=== PATIENT | male | born 1960 | race Caucasian/White ===

== ENCOUNTER 2021-02-11 18:00 | Emergency (ER) | payer BC ==
--- NOTE | 2021-02-11 19:36 | CR ---
Left ankle: 4 views of the left ankle were obtained. Comparison: No prior ankle study. Ankle mortise is symmetric. Mild soft tissue swelling is noted. No acute fracture, dislocation or other bony abnormality is appreciated. Impression: 1. Soft tissue swelling. 2. No acute osseous abnormality is appreciated. Diagnostic code #2
--- NOTE | 2021-02-11 19:53 | CR ---
Left tibia and fibula: AP and lateral views of the left tibia and fibula were obtained. Comparison: Ankle study performed earlier on the same day (6:59 PM) Soft tissue swelling appears to be present. Within the anterior talus there is a minimal irregularity being seen. Uncertain if this is due to acute or old cortical injury. This is not as well-seen on the recent ankle study. No additional fracture or other abnormality is appreciated. Impression: 1. Soft tissue swelling. 2. Minimal irregularity within the anterior talus. Please correlate if patient is symptomatic to this area to represent minimal cortical injury or whether this is old. Diagnostic code #3 MTDD
--- NOTE | 2021-02-11 19:55 | EDM.PDOC ---
ED HPI GENERAL MEDICAL PROBLEM - General Chief Complaint: Lower Extremity Injury/Pain Stated Complaint: SWOLLEN LT LEG Time Seen by Provider: 02/11/21 18:23 Source of Information: Reports: Patient, RN Notes Reviewed History Limitations: Reports: No Limitations - History of Present Illness INITIAL COMMENTS - FREE TEXT/NARRATIVE: Patient is a 6-year-old male presenting to the emergency department with complaints of pain and swelling to his left lower extremity. He states that on of last week, he stumbled and injured his ankle. Since that time the pain has been getting progressively worse. He took a road trip to [place] over this weekend so he was seated for an extended period of time with his legs in the dependent position. He has swelling extending up his left calf. He was seen at the walk-in clinic prior to coming here and there was concern that he could have a blood clot, therefore he was sent here for evaluation. Denies any history of blood clots. He has had no chest pain or shortness of breath. 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 Left Ankle Pain Score (Numeric/FACES): 10 - Related Data Allergies Allergy/AdvReac Type Severity Reaction Status Date / Time No Known Allergies Allergy Verified 02/11/21 18:29 Home Meds: Home Meds Rivaroxaban [Xarelto] 1 each PO ASDIRECTED #1 tab.ds.pk 02/11/21 [Rx] Past Medical History - Past Health History Medical/Surgical History: Denies Medical/Surgical History Social & Family History - Family History Family Medical History: No Pertinent Family History - Tobacco Use Tobacco Use Status *Q: Never Tobacco User - Caffeine Use Caffeine Use: Reports: None - Recreational Drug Use Recreational Drug Use: No Review of Systems - Review of Systems Review Of Systems: See Below Constitutional: Reports: No Symptoms Eyes: Reports: No Symptoms Ears: Reports: No Symptoms Nose: Reports: No Symptoms, Previous Injury Respiratory: Reports: No Symptoms. Denies: Shortness of Breath, Pleuritic Chest Pain Cardiovascular: Reports: Edema. Denies: Chest Pain GI/Abdominal: Reports: No Symptoms Genitourinary: Reports: No Symptoms Musculoskeletal: Reports: Leg Pain (left lower extremity/ankle) Skin: Reports: No Symptoms Neurological: Reports: No Symptoms Psychiatric: Reports: No Symptoms ED EXAM, GENERAL - Physical Exam Exam: See Below Exam Limited By: No Limitations General Appearance: Alert, WD/WN, No Apparent Distress Respiratory/Chest: No Respiratory Distress, Lungs Clear, Normal Breath Sounds, No Accessory Muscle Use, Chest Non-Tender Cardiovascular: Normal Peripheral Pulses, Regular Rate, Rhythm, No Gallop, No JVD, No Murmur, No Rub Extremities: Other (edema to left lower extremity below the level of the knee. No redness or warmth present. Mild tenderness to palpation of the medial malleolus. No tenderness to the foot.) Neurological: Alert, Oriented, CN II-XII Intact, Normal Cognition, Normal Gait, Normal Reflexes, No Motor/Sensory Deficits Psychiatric: Normal Affect, Normal Mood Skin Exam: Warm, Dry, Intact, Normal Color, No Rash Course - Vital Signs Last Recorded V/S: Last Vital Signs Temp 99.3 F 02/11/21 18:24 Pulse 78 02/11/21 18:24 Resp 18 02/11/21 18:24 BP 131/80 02/11/21 18:24 Pulse Ox 96 02/11/21 18:24 - Orders/Labs/Meds Labs: Laboratory Tests 02/11/21 Range/Units 19:22 D-Dimer, Quantitative 3.06 H (0.19-0.50) mg/L Meds: Medications Discontinued Medications Generic Name Dose Route Start Last Admin Trade Name Freq PRN Reason Stop Dose Admin Rivaroxaban 15 mg 02/11/21 21:19 02/11/21 21:31 Rivaroxaban 15 Mg Tab PO 02/11/21 21:20 15 mg ONETIME ONE Administration - Re-Assessments/Exams Free Text/Narrative Re-Assessment/Exam: Patient is a 6-year-old male presenting to the emergency department with complaints of pain and swelling to his left ankle and calf. States on of last week he misstepped and injured the ankle. Pain has been getting progressively worse as has been the swelling. I have ordered x-rays of the ankle and tib-fib. Also completed D-dimer. If this is elevated I will order venous Doppler ultrasound of the lower extremity. 02/11/211954 D-dimer was found to be elevated at 3.06. I have ordered a venous Doppler ultrasound of the left lower extremity. 02/11/21 21:20 Venous Doppler ultrasound of the left lower extremity shows a deep venous thrombosis of the left popliteal vein, posterior tibial, and peroneal veins. X- ray of the lower extremity shows a "minimal irregularity within the anterior Bernardo talus. Please correlate if patient is symptomatic to this area to represent minimal cortical injury or whether this is old." He has no tenderness to palpation of this area. Patient will be started on Xarelto for treatment of DVT. He will receive his first dose of medication this evening and I will send a prescription for the first month of the medication. Recommend that he schedule a follow-up appoint with his primary care provider at her next available visit for ongoing management. Discussed risks associated with blood thinners and concerning symptoms that should be evaluated including black stools or any head injuries. He verbalized understanding of this. Discharge instructions as documented. Departure - Departure Time of Disposition: 21:22 Disposition: Home, Self-Care 01 Condition: Good Clinical Impression: DVT (deep venous thrombosis) Qualifiers: DVT location: lower extremity Affected thrombotic vein of extremity: other lower extremity vein Chronicity: acute Laterality: left Qualified Code(s): I82.492 - Acute embolism and thrombosis of other specified deep vein of left lower extremity - Discharge Information *PRESCRIPTION DRUG MONITORING PROGRAM REVIEWED*: No *COPY OF PRESCRIPTION DRUG MONITORING REPORT IN PATIENT TORI: No Prescriptions: Rivaroxaban [Xarelto] 1 each PO ASDIRECTED #1 tab.ds.pk Instructions: Deep Vein Thrombosis Referrals: Tonya Honeycutt MD [Primary Care Provider] - Forms: ED Department Discharge Additional Instructions: You were seen in the emergency department this evening for evaluation with regards to pain and swelling to your left lower extremity. X-rays were completed and show no obvious fracture. Ultrasound was completed the extremity and did unfortunately show a deep venous thrombosis (blood clot). You have been started on Xarelto which is a blood thinner. Take this medication as prescribed. First dose was given in ER. Recommend that you call to schedule a follow-up with your primary care provider at her next available visit for ongoing management of the your blood clot as well as refills of this medication. Please be aware that when you are on blood thinners there is increased risk of bleeding. If you should note any black or tarry stools or injure your head in any way, you should be evaluated in the emergency department. If you should experience any other new or worsening symptoms of concern, please not hesitate to return for reevaluation. Sepsis Event Note (ED) - Evaluation Sepsis Screening Result: No Definite Risk - Focused Exam Vital Signs: Vital Signs Temp Pulse Resp BP Pulse Ox 02/11/21 18:24 99.3 F 78 18 131/80 96
--- NOTE | 2021-02-11 21:09 | US ---
Left lower extremity deep venous ultrasound: Duplex and color Doppler evaluation was obtained of the left common femoral, proximal greater saphenous, superficial femoral, popliteal, posterior tibial and peroneal veins. Right common femoral vein was also evaluated. Comparison: No previous ultrasound available. Findings: There is lack of compressibility, phasic flow and augmentation within the popliteal, posterior tibial and peroneal veins compatible with deep venous thrombosis. There is normal compression of the veins within the superficial femoral and common femoral veins. Right common femoral vein is patent. Impression: 1. Deep venous thrombosis within the left popliteal vein, posterior tibial and peroneal veins. Diagnostic code #5
[2021-02-11] MEDS ORDERED: Rivaroxaban 15 MG Tab PO ONE (21:19)
== END 2021-02-11 21:37 | disposition home or self-care (01) ==
LOC: JD.ED 18:00
DX: I82.492 Acute embolism and thrombosis of other specified deep vein of left lower extremity (principal)
CPT/HCPCS: 36415; 73590; 73610; 85379; 93971; 99284; A9270; 99283

== ENCOUNTER 2021-04-05 00:39 | Emergency (ER) | payer BC ==
--- NOTE | 2021-04-05 00:55 | EDM.PDOC ---
ED HPI GENERAL MEDICAL PROBLEM - General Chief Complaint: Cardiovascular Problem Stated Complaint: LEFT LEG PAIN/POSS BLOOD CLOT Time Seen by Provider: 04/05/21 00:54 Source of Information: Reports: Patient History Limitations: Reports: No Limitations - History of Present Illness INITIAL COMMENTS - FREE TEXT/NARRATIVE: Patient is a 60-year-old male who is complaining having pain with redness and warmth to his left lower leg which started approximately 9:00 tonight. Patient noted the pain and symptoms when he was going to bed tonight. He is currently being treated for a DVT with Xarelto of his left lower leg which he felt was due to twisting his ankle 1 month ago. He denies any numbness weakness paresthesias. He states the left leg looks much better than he did 1 month ago. He is noticing leg is red and warm to touch and tender which is new from tonight. He denies any fever or shaking chills. He has no chest pain cough or shortness of breath. Patient has had no abdominal pain numbness or weakness. Onset: Today Duration: Getting Worse Location: Reports: Lower Extremity, Left Quality: Reports: Ache Severity: Moderate Improves with: Reports: None Worsens with: Reports: Movement Context: Reports: Other (History of recent DVT on Xarelto.) Associated Symptoms: Reports: No Other Symptoms Left Leg Pain Score (Numeric/FACES): 9 - Related Data Allergies Allergy/AdvReac Type Severity Reaction Status Date / Time No Known Allergies Allergy Verified 04/05/21 00:51 Home Meds: Home Meds Rivaroxaban [Xarelto] 1 each PO ASDIRECTED #1 tab.ds.pk 02/11/21 [Rx] Amoxicillin/Potassium Clav [Augmentin 875-125 Tablet] 1 each PO BID #20 tablet 04/05/21 [Rx] Hydrocodone/Acetaminophen [Hydrocodone-Acetamin 5-325 mg] 1 each PO Q4HR PRN #14 tab 04/05/21 [Rx] Past Medical History - Past Health History Medical/Surgical History: Denies Medical/Surgical History Social & Family History - Family History Family Medical History: No Pertinent Family History - Tobacco Use Tobacco Use Status *Q: Never Tobacco User - Caffeine Use Caffeine Use: Reports: Tea - Recreational Drug Use Recreational Drug Use: Yes Drug Use in Last 12 Months: No Recreational Drug Type: Reports: Marijuana/Hashish Other Recreational Drug Type: quit using marijuana in 2002 ED ROS GENERAL - Review of Systems Review Of Systems: Comprehensive ROS is negative, except as noted in HPI. ED EXAM, GENERAL - Physical Exam Exam: See Below Exam Limited By: No Limitations General Appearance: Alert, No Apparent Distress Head: Atraumatic, Normocephalic Neck: Normal Inspection, Supple, Full Range of Motion Respiratory/Chest: No Respiratory Distress Cardiovascular: Normal Peripheral Pulses, Regular Rate, Rhythm GI/Abdominal: Soft, Non-Tender Extremities: Redness, Other (Positive for warmth and tenderness medial to the knee.) Psychiatric: Normal Affect, Normal Mood Skin Exam: Warm, Dry Lymphatic: No Adenopathy Course - Vital Signs Text/Narrative:: Patient's lab work is unremarkable. Reexamination of his leg after the Toradol shows markedly decreased erythema warmth and tenderness. Patient feels that he has not had much improvement but clinically looks dramatically improved. I feel it is less likely an infection at this time but will continue him on Augmentin and give him some hydrocodone with Tylenol as needed. Augmentin as listed effect on the Xarelto then most other antibiotics. Patient is to return to ER if symptoms are worse and follow-up with his PCP today or certainly by Thursday. I am giving patient today off work. Last Recorded V/S: Last Vital Signs Temp 97 F 04/05/21 00:47 Pulse 78 04/05/21 00:47 Resp 18 04/05/21 00:47 BP 156/94 H 04/05/21 00:47 Pulse Ox 95 04/05/21 00:47 - Orders/Labs/Meds Orders: Active Orders 24 hr Category Date Time Status CULTURE BLOOD [BC] Stat Lab 04/05/21 01:40 Received CULTURE BLOOD [BC] Stat Lab 04/05/21 01:45 Received Blood Culture x2 Reflex Set [OM.PC] Stat Oth 04/05/21 01:24 Ordered Labs: Laboratory Tests 04/05/21 04/05/21 04/05/21 Range/Units 01:16 01:16 01:16 WBC 10.07 H (4.23-9.07) K/mm3 RBC 4.72 (4.63-6.08) M/mm3 Hgb 14.8 (13.7-17.5) gm/dl Hct 43.8 (40.1-51.0) % MCV 92.8 H (79.0-92.2) fl MCH 31.4 (25.7-32.2) pg MCHC 33.8 (32.2-35.5) g/dl RDW Std Deviation 43.8 (35.1-43.9) fL Plt Count 160 L (163-337) K/mm3 MPV 10.4 (9.4-12.3) fl Neutrophils % (Manual) 52 (40-60) % Band Neutrophils % 2 (0-10) % Lymphocytes % (Manual) 28 (20-40) % Atypical Lymphs % 0 % Monocytes % (Manual) 12 H (2-10) % Eosinophils % (Manual) 4 (0.8-7.0) % Basophils % (Manual) 2 H (0.2-1.2) Platelet Estimate Decreased Plt Morphology Comment Normal RBC Morph Comment Normal ESR 4 (0-15) mm/hr Sodium 144 (136-145) mEq/L Potassium 4.3 (3.5-5.1) mEq/L Chloride 108 H (98-107) mEq/L Carbon Dioxide 26 (21-32) mEq/L Anion Gap 14.3 (5-15) BUN 16 (7-18) mg/dL Creatinine 1.0 (0.7-1.3) mg/dL Est Cr Clr Drug Dosing 76.00 mL/min Estimated GFR (MDRD) > 60 (>60) mL/min BUN/Creatinine Ratio 16.0 (14-18) Glucose 112 H (70-99) mg/dL Lactic Acid (0.4-2.0) mmol/L Calcium 8.5 (8.5-10.1) mg/dL Total Bilirubin 0.5 (0.2-1.0) mg/dL AST 21 (15-37) U/L ALT 36 (16-63) U/L Alkaline Phosphatase 60 (46-116) U/L Total Protein 6.6 (6.4-8.2) g/dl Albumin 3.3 L (3.4-5.0) g/dl Globulin 3.3 gm/dL Albumin/Globulin Ratio 1.0 (1-2) // Range/Units 01:16 WBC (4.23-9.07) K/mm3 RBC (4.63-6.08) M/mm3 Hgb (13.7-17.5) gm/dl Hct (40.1-51.0) % MCV (79.0-92.2) fl MCH (25.7-32.2) pg MCHC (32.2-35.5) g/dl RDW Std Deviation (35.1-43.9) fL Plt Count (163-337) K/mm3 MPV (9.4-12.3) fl Neutrophils % (Manual) (40-60) % Band Neutrophils % (0-10) % Lymphocytes % (Manual) (20-40) % Atypical Lymphs % % Monocytes % (Manual) (2-10) % Eosinophils % (Manual) (0.8-7.0) % Basophils % (Manual) (0.2-1.2) Platelet Estimate Plt Morphology Comment RBC Morph Comment ESR (0-15) mm/hr Sodium (136-145) mEq/L Potassium (3.5-5.1) mEq/L Chloride (98-107) mEq/L Carbon Dioxide (21-32) mEq/L Anion Gap (5-15) BUN (7-18) mg/dL Creatinine (0.7-1.3) mg/dL Est Cr Clr Drug Dosing mL/min Estimated GFR (MDRD) (>60) mL/min BUN/Creatinine Ratio (14-18) Glucose (70-99) mg/dL Lactic Acid 1.0 (0.4-2.0) mmol/L Calcium (8.5-10.1) mg/dL Total Bilirubin (0.2-1.0) mg/dL AST (15-37) U/L ALT (16-63) U/L Alkaline Phosphatase (46-116) U/L Total Protein (6.4-8.2) g/dl Albumin (3.4-5.0) g/dl Globulin gm/dL Albumin/Globulin Ratio (1-2) Meds: Medications Discontinued Medications Generic Name Dose Route Start Last Admin Trade Name Freq PRN Reason Stop Dose Admin Hydrocodone Bitart/Acetaminophen 1 tab 04/05/21 02:43 Acetaminophen/Hydrocodone 325-10 Mg Tab PO 04/05/21 02:44 ONETIME ONE Amoxicillin/Clavulanate Potassium 1 tab 04/05/21 02:43 Amoxicillin/Clavulanate K 500-125 Mg Tab PO 04/05/21 02:44 ONETIME ONE Sodium Chloride 1,000 mls @ 1,000 mls/hr 04/05/21 01:06 04/05/21 01:23 Normal Saline IV 04/05/21 02:05 1,000 mls/hr ONETIME ONE Administration Ketorolac Tromethamine 30 mg 04/05/21 01:06 04/05/21 01:24 Ketorolac 30 Mg/Ml Sdv IVPUSH 04/05/21 01:07 30 mg ONETIME ONE Administration Departure - Departure Time of Disposition: 02:50 Disposition: Home, Self-Care 01 Condition: Fair Clinical Impression: Leg pain, left DVT (deep venous thrombosis) Qualifiers: DVT location: lower extremity Affected thrombotic vein of extremity: other lower extremity vein Chronicity: acute Laterality: left Qualified Code(s): I82.492 - Acute embolism and thrombosis of other specified deep vein of left lower extremity Prescriptions: Amoxicillin/Potassium Clav [Augmentin 875-125 Tablet] 1 each PO BID #20 tablet Hydrocodone/Acetaminophen [Hydrocodone-Acetamin 5-325 mg] 1 each PO Q4HR PRN #14 tab PRN Reason: Pain Referrals: Tonya Honeycutt MD [Primary Care Provider] - Forms: ED Department Discharge Additional Instructions: Meds as prescribed. Return to ER if worse. Follow-up with PCP for recheck either today or on Thursday if unable to today. Sepsis Event Note (ED) - Evaluation Sepsis Screening Result: No Definite Risk - Focused Exam Vital Signs: Vital Signs Temp Pulse Resp BP Pulse Ox 04/05/21 00:47 97 F 78 18 156/94 H 95 - My Orders Last 24 Hours: My Active Orders 04/05/21 01:24 Blood Culture x2 Reflex Set [OM.PC] Stat 04/05/21 01:40 CULTURE BLOOD [BC] Stat 04/05/21 01:45 CULTURE BLOOD [BC] Stat - Assessment/Plan Last 24 Hours: My Active Orders 04/05/21 01:24 Blood Culture x2 Reflex Set [OM.PC] Stat 04/05/21 01:40 CULTURE BLOOD [BC] Stat 04/05/21 01:45 CULTURE BLOOD [BC] Stat
[2021-04-05] MEDS ORDERED: Sodium Chloride 0.9% 1,000 ML IV ONE (01:06)
[2021-04-05] MEDS ORDERED: Ketorolac 30 MG/ML SDV IVPUSH ONE (01:06)
[2021-04-05] MEDS ORDERED: Acetaminophen/HYDROcodone 325-10 MG Tab PO ONE (02:43)
[2021-04-05] MEDS ORDERED: Amoxicillin/Clavulanate K 500-125 MG Tab PO ONE (02:43)
== END 2021-04-05 02:58 | disposition home or self-care (01) ==
LOC: JD.ED 00:39
DX: I82.492 Acute embolism and thrombosis of other specified deep vein of left lower extremity (principal); Z79.01 Long term (current) use of anticoagulants
CPT/HCPCS: 36415; 80053; 83605; 85007; 85027; 85652; 87040; 96374; 99283; A9270; J1885; J7030

== ENCOUNTER 2021-04-06 16:50 | Emergency (ER) | payer BC ==
[2021-04-06] MEDS ORDERED: cefTRIAXone 2 GM, Lidocaine 1% 4.2 ML IM ONE ×2 (17:37)
--- NOTE | 2021-04-06 17:46 | EDM.PDOC ---
ED HPI GENERAL MEDICAL PROBLEM - General Chief Complaint: Lower Extremity Injury/Pain Stated Complaint: POSS BLOOD CLOT IN LT LEG Time Seen by Provider: 04/06/21 17:03 Source of Information: Reports: Patient History Limitations: Reports: No Limitations - History of Present Illness INITIAL COMMENTS - FREE TEXT/NARRATIVE: The patient presents with left leg pain. This started a few days ago. He has a history of DVT in the left lower leg. He has been on xarelto. He then developed swelling and pain in the left lower leg a few days ago. He has some redness to just below the knee. It does not involve the knee. He did not injure his knee and he was not kneeling. He has no fever, chills, cough, chest pain or shortness of breath. He has not missed any doses of his meds. He was seen here yesterday and prescribed augmentin and something for pain. He has returned because it did not get any better. Onset: Gradual Duration: Day(s): Location: Reports: Lower Extremity, Left (leg) Quality: Reports: Sharp Severity: Moderate Improves with: Reports: None Worsens with: Reports: None Associated Symptoms: Reports: No Other Symptoms Left Lower Leg Pain Score (Numeric/FACES): 9 - Related Data Allergies Allergy/AdvReac Type Severity Reaction Status Date / Time No Known Allergies Allergy Verified 04/05/21 00:51 Home Meds: Home Meds Rivaroxaban [Xarelto] 1 each PO ASDIRECTED #1 tab.ds.pk 02/11/21 [Rx] Amoxicillin/Potassium Clav [Augmentin 875-125 Tablet] 1 each PO BID #20 tablet 04/05/21 [Rx] Hydrocodone/Acetaminophen [Hydrocodone-Acetamin 5-325 mg] 1 each PO Q4HR PRN #14 tab 04/05/21 [Rx] cephALEXin [Keflex] 500 mg PO Q6H #40 cap 04/06/21 [Rx] Past Medical History - Past Health History Medical/Surgical History: Denies Medical/Surgical History HEENT History: Reports: Impaired Vision Cardiovascular History: Reports: Blood Clots/VTE/DVT, Other (See Below) Other Cardiovascular History: blood clot left leg. 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 Endocrine/Metabolic History: Reports: Obesity/BMI 30+ - Infectious Disease History Infectious Disease History: Reports: Novel Coronavirus Other Infectious Disease History: COVID-19 positive in 2019 Social & Family History - Family History Family Medical History: No Pertinent Family History - Tobacco Use Tobacco Use Status *Q: Never Tobacco User - Caffeine Use Caffeine Use: Reports: Tea - Recreational Drug Use Recreational Drug Use: No Review of Systems - Review of Systems Review Of Systems: See Below Constitutional: Reports: No Symptoms Eyes: Reports: No Symptoms Ears: Reports: No Symptoms Nose: Reports: No Symptoms Mouth/Throat: Reports: No Symptoms Respiratory: Reports: No Symptoms Cardiovascular: Reports: No Symptoms GI/Abdominal: Reports: No Symptoms Genitourinary: Reports: No Symptoms Musculoskeletal: Reports: Other (Left leg swelling and pain) ED EXAM, GENERAL - Physical Exam Exam: See Below Exam Limited By: No Limitations General Appearance: Alert, No Apparent Distress Ears: Normal External Exam Nose: Normal Inspection Head: Atraumatic, Normocephalic Neck: Normal Inspection Respiratory/Chest: No Respiratory Distress, Lungs Clear, Normal Breath Sounds Cardiovascular: Regular Rate, Rhythm, No Murmur, Other (Edema left leg) GI/Abdominal: Soft, Non-Tender, No Organomegaly, No Mass Back Exam: Normal Inspection Extremities: Other (Erythema and edema to the left lower leg and good sensation and pulses.) Course - Vital Signs Last Recorded V/S: Last Vital Signs Temp 97.2 F 04/06/21 17:02 Pulse 76 04/06/21 17:02 Resp 14 04/06/21 17:02 BP 143/86 H 04/06/21 17:02 Pulse Ox 94 L 04/06/21 17:02 - Orders/Labs/Meds Meds: Medications Discontinued Medications Generic Name Dose Route Start Last Admin Trade Name Freq PRN Reason Stop Dose Admin Ceftriaxone Sodium 2 gm/ 0 gm 04/06/21 17:37 Lidocaine HCl 4.2 ml IM 04/06/21 17:38 ONETIME ONE - Re-Assessments/Exams Free Text/Narrative Re-Assessment/Exam: 04/06/21 17:59 I have ordered a shot of rocephin and I will switch him to keflex. I did explain that this is too soon to see any change but I will make the change in antibiotics. Departure - Departure Time of Disposition: 18:00 Disposition: Home, Self-Care 01 Condition: Good Clinical Impression: Cellulitis Qualifiers: Site of cellulitis: extremity Site of cellulitis of extremity: lower extremity Laterality: left Qualified Code(s): L03.116 - Cellulitis of left lower limb - Discharge Information *PRESCRIPTION DRUG MONITORING PROGRAM REVIEWED*: Not Applicable *COPY OF PRESCRIPTION DRUG MONITORING REPORT IN PATIENT TORI: Not Applicable Prescriptions: cephALEXin [Keflex] 500 mg PO Q6H #40 cap Referrals: Tonya Honeycutt MD [Primary Care Provider] - 3 Days Forms: ED Department Discharge Additional Instructions: Stop taking the augmentin antibiotic and start taking the keflex 4 times per day for 10 days. Elevate your leg as much as you can for 2 days. You will not notice much of a change for 48 to 72 hours. After that you should notice a difference. Please return if you have more pain. Sepsis Event Note (ED) - Evaluation Sepsis Screening Result: No Definite Risk - Focused Exam Vital Signs: Vital Signs Temp Pulse Resp BP Pulse Ox 04/06/21 17:02 97.2 F 76 14 143/86 H 94 L
== END 2021-04-06 19:10 | disposition home or self-care (01) ==
LOC: JD.ED 16:50 → SUPCPDRO 16:50 → JD.ED 19:10
DX: L03.116 Cellulitis of left lower limb (principal); R60.0 Localized edema; E66.9 Obesity, unspecified; Z86.16 Personal history of COVID-19; Z86.718 Personal history of other venous thrombosis and embolism; Z79.01 Long term (current) use of anticoagulants; Z68.32 Body mass index [BMI] 32.0-32.9, adult
CPT/HCPCS: 96372; 99283; J0696